=== PATIENT | male | born 1940 | race Caucasian/White ===

== ENCOUNTER 2025-03-31 19:58 | Emergency (ER) | payer OTHER ==
[~2025-03-31] VITALS: Ht 177.8 cm; Wt 113.4 kg
[2025-03-31 22:20] VITALS: BP 162/78; TEMP 98.2; O2SAT 98
== END 2025-03-31 22:20 | disposition home or self-care (01) ==
LOC: ER 20:05
DX: S01.81XA Laceration without foreign body of other part of head, initial encounter (principal); G47.33 Obstructive sleep apnea (adult) (pediatric); W01.0XXA Fall on same level from slipping, tripping and stumbling without subsequent striking against object, initial encounter; Y93.89 Activity, other specified; Y92.89 Other specified places as the place of occurrence of the external cause; Y99.9 Unspecified external cause status
CPT/HCPCS: 70450-TC